=== PATIENT | male | born 1985 | race Caucasian/White ===

== ENCOUNTER → 2021-02-07 | Outpatient (CLI) | payer OTHER ==
[~2021-02-07] MED LIST: RT-ALBUTEROL SULF 2.5 MG/3 ML PRE-MIX VIAL INH ONE
== END ==
LOC: RT 14:30
PROVIDERS: ATTEND Family Medicine
DX: Z02.71 Encounter for disability determination (principal); J45.909 Unspecified asthma, uncomplicated
CPT/HCPCS: 94060

== ENCOUNTER → 2021-03-03 | Outpatient (CLI) | payer OTHER ==
--- NOTE | 2021-03-03 15:32 | Diagnostic Imaging Report ---
INDICATION: Chronic back pain. FINDINGS: Three views of the lumbosacral spine show normal height and alignment of the vertebral bodies. The disc spaces are well-maintained. There is mild spondylosis at L5-S1. There is no fracture. IMPRESSION: There are mild degenerative changes present with no acute abnormality seen. Dictated by: Dictated on workstation # [id number]
== END ==
LOC: RAD 13:12
PROVIDERS: ATTEND Family Medicine
DX: Z02.71 Encounter for disability determination (principal); M47.817 Spondylosis without myelopathy or radiculopathy, lumbosacral region
CPT/HCPCS: 72100